=== PATIENT | male | born 2000 | race African-American/Black ===

== ENCOUNTER 2024-03-30 11:29 | Emergency (ER) | payer OTHER, BC ==
[2024-03-30 12:00] VITALS: BP 122/77; PULSE 72; RESP 18; TEMP 98.4; BMI 30.1
[2024-03-30] MEDS: IBUPROFEN 400 MG TABLET (FP) PO ONE (12:05)
[2024-03-30] MEDS: FLUORESCEIN NA 1 EA STRIP OD ONE (12:05)
== END 2024-03-30 12:55 | disposition home or self-care (01) ==
LOC: FER 11:29
DX: H57.12 Ocular pain, left eye (principal); X10.2XXA Contact with fats and cooking oils, initial encounter; Y99.0 Civilian activity done for income or pay
CPT/HCPCS: 99283-25